=== PATIENT | male | born 1995 | race Caucasian/White ===

== ENCOUNTER 2022-04-25 21:20 | Emergency (ER) | payer OTHER, SELFPAY ==
[2022-04-25 22:08] VITALS: BP 137/79; PULSE 70; RESP 18; TEMP 36.8; O2SAT 96; BMI 39.2
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
[2022-04-25] MEDS: tizanidine 4 mg Tablet 8 MG PO (23:47)
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
== END 2022-04-26 00:18 | disposition home or self-care (01) ==
PROVIDERS: Emergency Provider Emergency Medicine; PCP Nurse Practitioner Family
DX: S16.1XXA Strain of muscle, fascia and tendon at neck level, initial encounter (principal); S13.4XXA Sprain of ligaments of cervical spine, initial encounter; V43.52XA Car driver injured in collision with other type car in traffic accident, initial encounter
CPT/HCPCS: 72040; 99283

== ENCOUNTER 2022-08-05 19:01 | Emergency (ER) | payer BC, SELFPAY ==
[2022-08-05 19:03] VITALS: BP 140/73; PULSE 79; RESP 18; O2SAT 99; BMI 38.0
--- NOTE | 2022-08-05 19:10 | ECG_ITS ---
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 Measurements Intervals [place] Rate: 79 P: 52 NV: 152 QRS: -12 QRSD: 98 T: 93 QT: 370 QTc: 425 Interpretive Statements SINUS RHYTHM ABNORMAL QRS-T ANGLE [QRS-T AXIS DIFFERENCE > 60] No previous ECG available for comparison Electronically Signed On 08-06-2022 12:59:32 GAS METER READER by Eladio Santos M.D. [id number] f
[2022-08-05 19:22] VITALS: BP 140/73; RESP 15; O2SAT 97
--- NOTE | 2022-08-05 19:32 | XRR_ITS ---
PROCEDURE INFORMATION: Exam: XR Chest Exam date and time: 08/05/2022 7:38 PM Age: 27 years old Clinical indication: Other: High blood pressure; Additional info: Cp TECHNIQUE: Imaging protocol: Radiologic exam of the chest. Views: 1 view. COMPARISON: CR XR cervical spine 3V* [id number] 04/25/2022 11:16 PM FINDINGS: Lungs: Lungs are clear bilaterally. Pleural spaces: No pleural effusion. No pneumothorax. Heart/Mediastinum: The cardiac silhouette is mildly enlarged. Mediastinal contours are unremarkable. Bones/joints: Unremarkable for age. XR/XR chest 1V portable [id number] IMPRESSION: 1. No acute pulmonary process. 2. The cardiac silhouette is mildly enlarged. This could be due at least in part to AP/lordotic technique. PA/lateral views of the chest may be obtained for further evaluation.
--- NOTE | 2022-08-05 19:34 | ED_ITS ---
HPI - Chest Pain General: Chief Complaint: Chest Pain Stated Complaint: HTN/ CP Time Seen by Provider: 08/05/22 19:14 Source: patient Mode of arrival: EMS Limitations: no limitations History of Present Illness: This patient was at work and called EMS because he felt like his blood pressure was spiking and he had numbness and tingling in his extremities as well as a mild headache and some chest discomfort. He states the symptoms lasted for period of time and eventually went away on their own. State s he has a history of fluctuation in blood pressure from time to time and used to take medication for blood pressure but it would make his blood pressure become very low and he become lightheaded and dizzy. He states that he did drink rockstar energy drink earlier today. He is also taking daily Aleve for joint pain. He denies alcohol or street drugs. He states that he also has a anxiety disorder but this was not quite the same as his anxiety disorder. Denies any recent illness to include fever cough, nausea vomiting diarrhea etc. Had some mild sinus congestion and has been taking a nasal spray as well. Associated symptoms: Deny abdominal pain, dyspnea, fever(s), nausea, palpitations, syncope or vomiting Review of Systems Const: Denies: fever(s) or chills Eyes: Denies: change in vision ENMT: Denies: odynophagia, hoarseness, nasal discharge or nasal congestion Card: Reports: lightheadedness; Denies: palpitations, irregular heart rhythm, edema, syncope or pre-syncope Resp: Denies: dyspnea, productive cough, non-productive cough or wheezing GI: Denies: abdominal pain, nausea, vomiting or diarrhea : Denies: flank pain, difficulty urinating or dysuria Musc: Denies: neck pain, back pain, extremity pain or extremity swelling Skin/Breast: Denies: rash Neuro: Reports: numbness in extremities; Denies: headache(s), weakness in extremities or dizziness Psych: Reports: anxiety Endo: Denies: polyuria, polydipsia, cold intolerance or excessive sweating Physical Exam Narrative: EXAM NARRATIVE: Patient makes good eye contact. He appears to be in no acute distress and comfortable and answers questions in appropriate fashion. Const: COMMON NORMALS: no acute distress, patient oriented x3 and alert GENERAL APPEARANCE: cooperative and comfortable NUTRITIONAL APPEARANCE: overweight ORIENTATION/CONSCIOUSNESS: Yes awake HENMT: COMMON NORMALS: normocephalic, atraumatic, Normal nasal mucous membranes and turbinates present, moist oral mucous membranes and oropharynx normal HEAD & SCALP: normocephalic and atraumatic NOSE: Normal nasal mucous membranes and turbinates present Eye: COMMON NORMALS: Equal, round and reactive pupils present, EOMs intact bilaterally and conjunctivae normal CONJUNCTIVA: Yes conjunctivae normal PUPIL: Yes Equal, round and reactive pupils present Neck/C-Spine: COMMON NORMALS: full ROM, no JVD, Thyroid normal and No carotid bruits THYROID: Thyroid normal Chest: COMMONS NORMALS: normal inspection of the chest and normal palpation of entire chest wall Resp: COMMON NORMALS: normal respiratory effort, No retractions and clear to auscultation bilaterally AUSCULTATION: clear to auscultation bilaterally Cardio: COMMON NORMALS: no JVD, regular rate, regular rhythm, No murmurs present (Cardio) and Peripheral pulses 2+ throughout RATE: regular rate RHYTHM: regular rhythm PERIPHERAL PULSES: Peripheral pulses 2+ throughout GI: COMMON NORMALS: Normal to inspection, nondistended, normoactive bowel sounds present, Soft to palpation, non-tender and no masses PALPATION: Yes Soft to palpation : COMMON NORMALS: Yes no CVA tenderness BLADDER/KIDNEY EXAM: Yes no CVA tenderness Back/Pelvis: COMMON NORMALS: no CVA tenderness, thoracic and lumbar spine normal to inspection, no thoracic nor lumbar tenderness, thoraco-lumbar ROM normal and straight leg raise negative bilaterally Extremity: COMMON NORMALS: normal to inspection, full ROM, capillary refill normal, no joint enlargement, no calf tenderness and no pedal edema Neuro: COMMON NORMALS: patient oriented x3, moves all extremities, no focal motor deficits and no sensory deficits noted SENSORIUM/ORIENTATION: Yes alert CRANIAL NERVES: Yes CN normal except as noted SPEECH: speech normal Psych: COMMON NORMALS: mental status grossly normal, cooperative, normal affect and speech normal SPEECH: Yes normal speech and Yes rapid Skin: COMMON NORMALS: no rashes or lesions noted and turgor normal GENERAL SKIN EXAM: no rashes or lesions noted and turgor normal Course Reevaluation(s): Reevaluation #1: Vital signs remain normal range and reassuring at this time. The patient remains alert calm and without any new or focal findings on reevaluation. Laboratories and other ancillary studies are reassuring at this time. We discussed potential etiologies to his symptoms to include anxiety, nonsteroidals, energy drinks, nicotine, body weight etc. Certainly no evidence at this time of any going emergency medical condition. He is stable at this time for discharge and we reviewed return precautions and follow-up. Time: 20:35 Vital Signs: Vital signs: Vital Signs Pulse Rate 76 08/05/22 20:02 Respiratory Rate 14 08/05/22 20:02 Blood Pressure 139/64 08/05/22 20:02 Pulse Oximetry 98 08/05/22 20:02 Oxygen Delivery Me thod 08/05/22 19:22 MDM - Chest Pain Medical Decision Making This gentleman who has a history of labile blood pressure in the past presented to the emergency room because he had an episode that he subjectively associated with possible blood pressure elevations. He had associated heaviness in his chest as well as tingling in his hands and face and lightheadedness feeling. His clinical exam was nonfocal and not suggesting any CONSUMER INSIGHT ANALYST or other concerning etiologies. EKG, ancillary studies were also reassuring without any evidence of ongoing myocardial ischemia, renal dysfunction etc. The patient does admit to using energy drinks as well as nicotine from time to time. He also freely admits that he has anxiety symptoms that sometimes are unprovoked. Is also been working 70 to 80-hour work weeks recently with certainly also may be a contributing factor. Currently no evidence at this time of tolerated hypertension or other concerning acute issues. I recommended trying to avoid stimulants such as energy drinks nicotine etc. Also avoid removing reducing salt intake, avoiding nonsteroidals as well as doing a blood pressure guide and following up with a primary care physician to reassess his findings blood pressure and whether any other intervention is necessary. Lab Data I reviewed the patient's lab results. 08/05/22 19:12 08/05/22 19:12 Radiology Impressions Chest X-Ray 08/05/22 19:32 IMPRESSION: 1. No acute pulmonary process. 2. The cardiac silhouette is mildly enlarged. This could be due at least in part to AP/lordotic technique. PA/lateral views of the chest may be obtained for further evaluation. Laboratory Results WBC 7.2 10^3/uL (4.0-10.0) 08/05/22 19:12 RBC 5.32 10^6/uL (4.1-5.3) H 08/05/22 19:12 Hgb 14.9 g/dL (11.7-16.6) 08/05/22 19:12 Hct 45.9 % (42.0-52.0) 08/05/22 19:12 MCV 86.3 fl (80-94) 08/05/22 19:12 MCH 28.0 pg (28.0-34.0) 08/05/22 19:12 MCHC 32.5 g/dL (30.0-36.0) 08/05/22 19:12 RDW 13.3 % (12.1-15.1) 08/05/22 19:12 Plt Count 300 10^3/cmm (130-400) 08/05/22 19:12 MPV 11.1 fL (7.4-10.4) H 08/05/22 19:12 Neut % (Auto) 65.6 % 08/05/22 19:12 Lymph % (Auto) 22.9 % 08/05/22 19:12 [place] % (Auto) 9.0 % 08/05/22 19:12 Eos % (Auto) 1.5 % 08/05/22 19:12 Baso % (Auto) 0.7 % 08/05/22 19:12 Neut # (Auto) 4.74 10^3/uL (1.8-7.7) 08/05/22 19:12 Lymph # (Auto) 1.7 10^3/uL (0.8-4.8) 08/05/22 19:12 [place] # (Auto) 0.7 10^3/uL (0.2-0.9) 08/05/22 19:12 Eos # (Auto) 0.1 10^3/uL (0.0-0.8) 08/05/22 19:12 Baso # (Auto) 0.1 10^3/uL (0.0-0.1) 08/05/22 19:12 Nucleated RBC % (auto) 0 % 08/05/22 19:12 Nucleated RBCs # 0.0 /100WBC 08/05/22 19:12 Sodium 141 mmol/L (136-145) 08/05/22 19:12 Potassium 3.8 mmol/L (3.5-5.1) 08/05/22 19:12 Chloride 104 mmol/L (98-107) 08/05/22 19:12 Carbon Dioxide 28 mmol/L (22-29) 08/05/22 19:12 Anion Gap 12.8 (5-19) 08/05/22 19:12 BUN 12 mg/dL (6-20) 08/05/22 19:12 Creatinine 1.0 mg/dL (0.7-1.2) 08/05/22 19:12 GFR Calculation 89.0 mL/min (90-130) L 08/05/22 19:12 Glucose 120 mg/dL (65-115) H 08/05/22 19:12 Calculated Osmolality 293 mOsm/kg (285-295) 08/05/22 19:12 Calcium 9.0 mg/dL (8.5-10.5) 08/05/22 19:12 Troponin T Gen 5 ng/L 8 ng/L (0-15) 08/05/22 19:12 EKG Data EKG 1: I personally reviewed and interpreted this EKG as follows: Interpretation: Resting EKG reveals a rate of 79 bpm. Normal DE interval. Normal QRS duration. Normal QTC. Normal axis. No acute ST-T wave changes noted. Discharge Plan Discharge Patient Disposition: Home Clinical Impression: Anxiety, Blood pressure elevated without history of HTN Condition: Stable Prescriptions: No Action tizanidine 4 mg tablet 2 mg PO Q8H PRN (Reason: muscle spasticity) Qty: 12 0RF ketorolac 10 mg tablet 10 mg PO TID PRN (Reason: pain) Qty: 10 0RF Discharge Orders: Discharge ED (Routine); Ordered 08/05/22 Ordered By: Erlin Pedro Referrals: Hawk Ro FNP [Primary Care Provider] - Discharge Diet: Low Salt Discharge Activity: Increase activity as tolerated Patient Instructions: Opioid Safety, Pain Management Activity Restrictions/Additional Instructions: As we discussed your evaluation in the emergency department tonight did not reveal any serious conditions or causes for your symptoms. As we discussed we recommend reducing use of energy drinks, nicotine, anti-inflammatory such as Aleve ibuprofen etc. as well as reducing her salt intake. We also recommend use your blood pressure cuff to monitor your blood pressure 2-3 times weekly while at rest and or if you develop symptoms such as this evening. We recommend also contacting her primary care physician in the next 2 to 3 weeks to review your blood pressures and discuss any additional treatment or evaluations indicated. If you develop sustained chest pain, or other concerning symptoms at any time return to this or the nearest emergency department. Coding Level of Care Code ED Telephone Technician for Terrence Fwd Exam Comprehensive
[2022-08-05 19:38] LABS: Basophils # 0.1 10^3/uL (0.0-0.1); Basophils % 0.7 %; Eosinophils # 0.1 10^3/uL (0.0-0.8); Eosinophils % 1.5 %; Hematocrit 45.9 % (42.0-52.0); Hemoglobin 14.9 g/dL (11.7-16.6); Lymphocytes # 1.7 10^3/uL (0.8-4.8); Lymphocytes % 22.9 %; Mean Corpuscular HGB Conc 32.5 g/dL (30.0-36.0); Mean Corpuscular Volume 86.3 fl (80-94); Mean Platelet Volume 11.1 fL (7.4-10.4); Monocytes # 0.7 10^3/uL (0.2-0.9); Neutrophils # 4.74 10^3/uL (1.8-7.7); Neutrophils % 65.6 %; Nucleated Red Blood Cells % 0 %; Platelet Count 300 10^3/cmm (130-400); Red Blood Count 5.32 10^6/uL (4.1-5.3); Red Cell Distribution Width 13.3 % (12.1-15.1); White Blood Count 7.2 10^3/uL (4.0-10.0)
[2022-08-05 19:50] LABS: Troponin T (5th) Once 8 ng/L (0-15)
[2022-08-05 19:53] LABS: Anion Gap 12.8 (5-19); Blood Urea Nitrogen 12 mg/dL (6-20); Carbon Dioxide 28 mmol/L (22-29); Chloride 104 mmol/L (98-107); Glucose 120 mg/dL (65-115); Osmolality Calculated 293 mOsm/kg (285-295); Potassium 3.8 mmol/L (3.5-5.1); Sodium 141 mmol/L (136-145)
[2022-08-05 20:02] VITALS: BP 139/64; PULSE 76; RESP 14; O2SAT 98
== END 2022-08-05 20:46 | disposition home or self-care (01) ==
PROVIDERS: Emergency Provider Emergency Medicine; PCP Nurse Practitioner Family
DX: F41.9 Anxiety disorder, unspecified (principal); R03.0 Elevated blood-pressure reading, without diagnosis of hypertension
CPT/HCPCS: 71045; 80048; 84484; 85025; 93005; 99285

== ENCOUNTER 2023-01-11 11:30 | Emergency (ER) | payer BC, SELFPAY ==
[2023-01-11 11:36] VITALS: BP 141/88; PULSE 88; RESP 18; TEMP 36.7; O2SAT 99; BMI 32.5
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
[2023-01-11] MEDS: bacitracin ointment Pkt 1 EACH TOPICAL (12:49)
[2023-01-11 12:57] VITALS: BP 143/81; PULSE 69; O2SAT 96
[2023-01-11 13:40] VITALS: BP 118/76; PULSE 68; O2SAT 95
== END 2023-01-11 13:40 | disposition home or self-care (01) ==
PROVIDERS: Emergency Provider Emergency Medicine; PCP Nurse Practitioner Family
DX: T20.16XA Burn of first degree of forehead and cheek, initial encounter (principal); T22.112A Burn of first degree of left forearm, initial encounter; X16.XXXA Contact with hot heating appliances, radiators and pipes, initial encounter
CPT/HCPCS: 99282

== ENCOUNTER 2023-12-14 18:12 | Emergency (ER) | payer OTHER, SELFPAY ==
[2023-12-14 18:21] VITALS: BP 140/85; PULSE 74; RESP 16; TEMP 36.7; O2SAT 97
--- NOTE | 2023-12-14 19:25 | ED_ITS ---
Documented by User: CARLI Lepe 12/14/23 19:31 HPI - Eye Problem General: Chief complaint: Eye Problems Stated complaint: metal in right eye/ injury Time Seen by Provider: 12/14/23 18:30 Source: patient Mode of arrival: ambulatory Limitations: no limitations History of Present Illness: Patient is a 28-year-old male who presents to the emergency department comp laining of right eye pain for the past 3 weeks. Patient notes he initially got a piece of metal in his eye 3 weeks ago, though notes that he was able to work it out and the pain seems subsided. He does note that he has had a few episodes since of the recurrent pain that would also improve on its own. Today he states the pain was its worst, and he is currently have it at bedside. His tetanus is not up-to-date though he reports an allergy to vaccination. He is denying any visual changes, pain with extraocular movements, or any other concerning symptoms at this time. MD chief complaint: eye pain and eye redness Onset (ago): week(s) (3) Onset description: sudden Duration: intermittent Location: right eye Eye Symptoms: redness and pain Place: work Mechanism: direct trauma Severity: moderate Associated symptoms: Denies fever(s), headache(s), nausea, neck pain or vomiting Related Data: Patient tetanus UTD: No Review of Systems General: Reports: 10 or more systems reviewed and unremarkable except in HPI and below Const: Denies: fever(s), chills or fatigue Eyes: Reports: eye discomfort and eye redness; Denies: change in vision ENMT: Denies: throat pain, ear or mastoid pain or nasal discharge Card: Denies: chest pain, palpitations, swelling of feet/ankles or lightheadedness Resp: Denies: dyspnea, productive cough or wheezing GI: Denies: abdominal pain, nausea, vomiting, diarrhea or constipation : Denies: flank pain, difficulty urinating, dysuria or urinary frequency Musc: Denies: neck pain, back pain or joint pain Skin/Breast: Denies: rash Neuro: Denies: headache(s), numbness in extremities or weakness in extremities Physical Exam Const: COMMON NORMALS: no acute distress, patient oriented x3 and no limitations GENERAL APPEARANCE: cooperative, comfortable and well developed ORIENTATION/CONSCIOUSNESS: Yes awake, Yes oriented to person, Yes oriented to place and Yes oriented to time HENMT: COMMON NORMALS: normocephalic, atraumatic and hearing grossly normal bilaterally HEAD & SCALP: normocephalic and atraumatic Eye: COMMON NORMALS: Equal, round and reactive pupils present and EOMs intact bilaterally CONJUNCTIVA: Yes conjunctival abnormal positive right conjunctival injection PUPIL: Yes Equal, round and reactive pupils present SLIT LAMP EXAM: Yes slit lamp exam performed with fluorescein, Yes lids/lashes/lacrimal system Lids/lashes/lacrimal system details: normal appearing, Yes conjunctiva/sclera Conjunctiva/sclera details: normal appearing and Yes cornea Cornea details: rust ring present OTHER: No foreign bodies noted on slit-lamp examination Neck/C-Spine: COMMON NORMALS: full ROM, supple and no JVD Resp: COMMON NORMALS: normal respiratory effort, No retractions, No use of accessory muscles and clear to auscultation bilaterally AUSCULTATION: clear to auscultation bilaterally Cardio: COMMON NORMALS: no JVD, regular rate, regular rhythm, No clicks present (Cardio), No murmurs present (Cardio) and No rub (Cardio) RATE: regular rate RHYTHM: regular rhythm Neuro: COMMON NORMALS: patient oriented x3, moves all extremities, no focal motor deficits and no sensory deficits noted SENSORIUM/ORIENTATION: Yes oriented to person, Yes oriented to place and Yes oriented to time Psych: COMMON NORMALS: mental status grossly normal and Normal thought process present THOUGHT PROCESS: Normal thought process present Skin: COMMON NORMALS: no rashes or lesions noted GENERAL SKIN EXAM: no rashes or lesions noted Course Vital Signs: Vital signs: Vital Signs Temperature 98.1 F 12/14/23 18:21 Pulse Rate 74 12/14/23 18:21 Respiratory Rate 16 12/14/23 18:21 Blood Pressure 140/85 12/14/23 18:21 Pulse Oximetry 97 12/14/23 18:21 MDM - Eye Problem Medical Decision Making Patient was seen for eye pain and redness for the past 3 weeks that has occurred intermittently from a foreign body. He notes it was the worst today. On arrival patient's vitals normal. Visual examination of the right eye did show a very small rust ring present, though slit-lamp examination did not show any signs of corneal abrasion or ulceration. Will treat with erythromycin and refer to ophthalmology. Return precautions given. No radiology studies performed this visit Discharge Plan Discharge Patient Disposition: Home Clinical Impression: Bacterial conjunctivitis Condition: Stable Prescriptions: New erythromycin 5 mg/gram (0.5 %) ointment 1 applic ophthalmic (eye) BID Qty: 50 0RF No Action Zyrtec 10 mg Tablet 10 mg PO DAILY sertraline 50 mg Tablet 50 mg PO DAILY hydrocodone-acetaminophen 5-325 mg tablet 1 tab PO Q8H PRN (Reason: pain) Qty: 14 0RF Bacitraycin Plus 500 unit/gram ointment 1 applic topical Q12H Qty: 28.4 0RF Rx Instructions: apply a shekhar sized amount lightly applied to the affected areas. Discharge Orders: Discharge ED (Routine); Ordered 12/14/23 Ordered By: Aidan Sanchez Discharge Diet: Usual diet Discharge Activity: Increase activity as tolerated Patient Instructions: Conjunctivitis (ED) Activity Restrictions/Additional Instructions: Erythromycin ointment as prescribed. Follow-up with ophthalmology as discussed. Return if you have any new or worsening symptoms. Tylenol and ibuprofen for pain. Coding Level of Care Code ED Health Care Marketing Specialist for [facility] Documented by User: Leonel Matute DO 12/16/23 06:47 HPI - Eye Problem General: Chief complaint: Eye Problems Stated complaint: metal in right eye/ injury Time Seen by Provider: 12/14/23 18:30 Course Vital Signs: Vital signs: Vital Signs Temperature 98.1 F 12/14/23 18:21 Pulse Rate 74 12/14/23 18:21 Respiratory Rate 16 12/14/23 18:21 Blood Pressure 140/85 12/14/23 18:21 Pulse Oximetry 97 12/14/23 18:21 MDM - Eye Problem Medical Decision Making Patient was seen for eye pain and redness for the past 3 weeks that has occurred intermittently from a foreign body. He notes it was the worst today. On arrival patient's vitals normal. Visual examination of the right eye did show a very small rust ring present, though slit-lamp examination did not show any signs of corneal abrasion or ulceration. Will treat with erythromycin and refer to ophthalmology. Return precautions given. Chart reviewed Discharge Plan Discharge Patient Disposition: Home Clinical Impression: Bacterial conjunctivitis Condition: Stable Prescriptions: New erythromycin 5 mg/gram (0.5 %) ointment 1 applic ophthalmic (eye) BID Qty: 50 0RF No Action Zyrtec 10 mg Tablet 10 mg PO DAILY sertraline 50 mg Tablet 50 mg PO DAILY hydrocodone-acetaminophen 5-325 mg tablet 1 tab PO Q8H PRN (Reason: pain) Qty: 14 0RF Bacitraycin Plus 500 unit/gram ointment 1 applic topical Q12H Qty: 28.4 0RF Rx Instructions: apply a shekhar sized amount lightly applied to the affected areas. Discharge Orders: Discharge ED (Routine); Ordered 12/14/23 Ordered By: Aidan Sanchez Discharge Diet: Usual diet Discharge Activity: Increase activity as tolerated Patient Instructions: Conjunctivitis (ED) Activity Restrictions/Additional Instructions: Erythromycin ointment as prescribed. Follow-up with ophthalmology as discussed. Return if you have any new or worsening symptoms. Tylenol and ibuprofen for pain. Coding Level of Care Code ED Health Care Marketing Specialist for Terrence Underwood
[2023-12-14] MEDS: erythromycin Op Oint 1 gm 1 APPLIC EYE-RIGHT (19:41)
--- NOTE | 2023-12-15 18:57 | DCPLANNER ---
er follow up referral faxed to [facility]
== END 2023-12-14 19:45 | disposition home or self-care (01) ==
PROVIDERS: Emergency Provider Physician Assistant
DX: H10.89 Other conjunctivitis (principal)
CPT/HCPCS: 99283